=== PATIENT | male | born 1955 | race African-American/Black ===

== ENCOUNTER 2021-06-05 08:31 | Inpatient (IN) | payer MEDICAID ==
[~2021-06-05] VITALS: Ht 182.9 cm; Wt 79.1 kg
[2021-06-05] MEDS ORDERED: SODIUM CHLORIDE 0.9% 1000ML BAG (SEPSIS BOLUS) IV ONE (09:15)
[2021-06-05] MEDS ORDERED: PIPERACILLIN/TAZ 3.375G PREMIX 50 ML IV ONE (09:15)
[2021-06-05] MEDS ORDERED: VANCOMYCIN 1 G PREMIX 200 ML IV ONE (09:15)
[2021-06-05 09:50] LABS: CHLORIDE 97 mEq/L (98-107)
[2021-06-05 10:02] LABS: HEMATOCRIT. 39.9 % (42.0-52.0); HEMOGLOBIN. 13.2 g/dL (14.0-18.0); MEAN CORPUSCULAR HEMOGLOBIN 29.2 pg (28.0-32.0); MEAN CORPUSCULAR VOLUME 88.6 fL (80.0-94.0); MEAN PLATELET VOLUME 7.5 fl (7.4-10.4); PLATELET 185 x1000/uL (130-400); RED CELL DISTRIBUTION WIDTH 14.5 % (11.6-14.6)
[2021-06-05 10:46] LABS: PLATELET ESTIMATE NORMAL
[2021-06-05 11:30] LABS: CLARITY URINE CLEAR (CLEAR); COLOR URINE YELLOW (YELLOW); KETONES URINE NEGATIVE (NEGATIVE); LEUKOCYTE ESTERASE URINE NEGATIVE (NEGATIVE); NITRITE URINE NEGATIVE (NEGATIVE); OCCULT BLOOD URINE NEGATIVE (NEGATIVE); PH URINE 8.5 (4.5-8.0); PROTEIN URINE NEGATIVE (NEGATIVE); UROBILINOGEN URINE 0.2 E.U./dL (0.2-1.0)
[2021-06-05 12:16] LABS: CHLORIDE 100 mEq/L (98-107)
[2021-06-05] MEDS ORDERED: HALOPERIDOL LACTATE 5MG/ML VIAL IM PRN (15:15)
[2021-06-05 16:00] VITALS: BP 133/75
[2021-06-05] MEDS ORDERED: NA PHOS,M-B/NA PHOS,DI-BA ENEMA 118ML PR PRN (16:45)
[2021-06-05] MEDS ORDERED: ONDANSETRON HCL 4MG/2ML INJ IV PRN (16:45)
[2021-06-05] MEDS ORDERED: PIPERACILLIN/TAZ 3.375G PREMIX 50 ML IV SCH (16:45)
[2021-06-05] MEDS ORDERED: NITROGLYCERIN 0.4MG TABLET SL SL PRN (16:45)
[2021-06-05] MEDS ORDERED: DOCUSATE SODIUM 100MG CAPSULE PO PRN (16:45)
[2021-06-05] MEDS ORDERED: IPRATROPIUM/ALBUTEROL 0.5-3(2.5)MG/3ML NEB NEB PRN (16:45)
[2021-06-05] MEDS ORDERED: CLONIDINE 0.1MG TABLET PO PRN (16:45)
[2021-06-05] MEDS ORDERED: GUAIFENESIN 200MG/10ML SUGAR FREE UDC PO PRN (16:45)
[2021-06-05] MEDS ORDERED: KETOROLAC 30MG/ML VIAL IV PRN (16:45)
[2021-06-05] MEDS ORDERED: ACETAMINOPHEN 325MG TABLET PO PRN (16:45)
[2021-06-05] MEDS ORDERED: MAGNESIUM/ALUMINUM HYDROXIDE/SIMETHICONE 30ML UDC PO PRN (16:45)
[2021-06-05] MEDS: LACTULOSE 20G/30ML UDC PO SCH ×2 (17:00→22:34)
[2021-06-05] MEDS: ENOXAPARIN 40MG/0.4ML SYR SUBCUT SCH (17:00)
[2021-06-05] MEDS: PIPERACILLIN/TAZOBACTAM 3.375G in DEXT 5% WATER 50ML IV SCH (18:00)
[2021-06-05] MEDS: VANCOMYCIN 1500MG in DEXTROSE 5% WATER 250ML IV SCH (18:30)
[2021-06-05 18:42] VITALS: BP 106/52
[2021-06-05 20:00] VITALS: BP 128/78
[2021-06-05 20:55] LABS: T4 FREE 0.84 ng/dL (0.76-1.46)
[2021-06-05 21:22] LABS: VITAMIN B12 SERUM 518 pg/mL (211-911)
[2021-06-05 21:25] LABS: FOLIC ACID (FOLATE) SERUM > 20.00 ng/mL (>5.38)
[2021-06-05] MEDS: ASCORBIC ACID 500 MG TABLET PO SCH (22:34)
[2021-06-05] MEDS: FAMOTIDINE 20MG TABLET PO SCH (22:34)
[2021-06-05] MEDS: ZOLPIDEM TARTRATE 5MG TABLET PO PRN (22:45)
[2021-06-06] VITALS: BP 136/83
[2021-06-06 00:01] LABS: CREATINE KINASE 290 IU/L (39-308)
[2021-06-06 00:03] LABS: CREATINE KINASE MB FRACTION 1.3 ng/mL (0.5-3.6)
[2021-06-06] MEDS: PIPERACILLIN/TAZOBACTAM 3.375G in DEXT 5% WATER 50ML IV SCH ×4 (00:56→20:33)
[2021-06-06 04:00] VITALS: BP 139/82
[2021-06-06] MEDS: VANCOMYCIN 1500MG in DEXTROSE 5% WATER 250ML IV SCH ×2 (05:18→17:55)
[2021-06-06] MEDS: LACTULOSE 20G/30ML UDC PO SCH ×3 (05:18→20:33)
[2021-06-06 07:56] LABS: BASOPHILS % 0.5 % (0.0-2.0); HEMATOCRIT. 38.4 % (42.0-52.0); HEMOGLOBIN. 12.8 g/dL (14.0-18.0); LYMPHOCYTES % 8.2 % (20.0-50.0); MEAN CORPUSCULAR HEMOGLOBIN 29.5 pg (28.0-32.0); MEAN CORPUSCULAR VOLUME 88.1 fL (80.0-94.0); MEAN PLATELET VOLUME 8.2 fl (7.4-10.4); MONOCYTES % 8.1 % (2.0-8.0); NEUTROPHILS % 83.2 % (40.0-76.0); PLATELET 211 x1000/uL (130-400); RED BLOOD CELL COUNT 4.36 mill/uL (4.7-6.1); RED CELL DISTRIBUTION WIDTH 14.5 % (11.6-14.6)
[2021-06-06 08:00] VITALS: BP 130/81
[2021-06-06 08:01] LABS: CHLORIDE 108 mEq/L (98-107)
[2021-06-06 08:12] LABS: PHOSPHORUS 2.8 mg/dL (2.5-4.9)
[2021-06-06 08:18] LABS: CREATINE KINASE 192 IU/L (39-308); HDL CHOLESTEROL 79 mg/dL (40-59)
[2021-06-06 08:19] LABS: LDL CHOLESTEROL 95 mg/dL (5-100)
[2021-06-06] MEDS: ASCORBIC ACID 500 MG TABLET PO SCH ×2 (09:33→20:33)
[2021-06-06] MEDS: ZINC SULFATE 220 MG ( 50 ) CAPSULE PO SCH (09:33)
[2021-06-06] MEDS: ASPIRIN 325MG EC TABLET PO SCH (09:33)
[2021-06-06] MEDS: FAMOTIDINE 20MG TABLET PO SCH ×2 (09:33→20:33)
[2021-06-06 12:00] VITALS: BP 132/81
[2021-06-06 16:00] VITALS: BP 137/84
[2021-06-06] MEDS: ENOXAPARIN 40MG/0.4ML SYR SUBCUT SCH (17:55)
[2021-06-06 20:00] VITALS: BP 105/69
[2021-06-06] MEDS: ZOLPIDEM TARTRATE 5MG TABLET PO PRN (20:33)
[2021-06-07] VITALS: BP 138/66
[2021-06-07 04:00] VITALS: BP 122/69
[2021-06-07 05:48] LABS: CHLORIDE 108 mEq/L (98-107)
[2021-06-07 05:59] LABS: VANCOMYCIN TROUGH 15.5 ug/mL (5.0-10.0)
[2021-06-07] MEDS: LACTULOSE 20G/30ML UDC PO SCH ×3 (06:19→20:52)
[2021-06-07] MEDS: PIPERACILLIN/TAZOBACTAM 3.375G in DEXT 5% WATER 50ML IV SCH ×3 (06:20→20:52)
[2021-06-07] MEDS: VANCOMYCIN 1500MG in DEXTROSE 5% WATER 250ML IV SCH (06:20)
[2021-06-07 08:18] VITALS: BP 134/92
[2021-06-07] MEDS: ASCORBIC ACID 500 MG TABLET PO SCH ×2 (08:32→20:52)
[2021-06-07] MEDS: ASPIRIN 325MG EC TABLET PO SCH (08:32)
[2021-06-07] MEDS: FAMOTIDINE 20MG TABLET PO SCH ×2 (08:32→20:52)
[2021-06-07] MEDS: ZINC SULFATE 220 MG ( 50 ) CAPSULE PO SCH (08:32)
[2021-06-07 12:00] VITALS: BP 118/76
[2021-06-07 16:28] VITALS: BP 133/88
[2021-06-07] MEDS: VANCOMYCIN 1250MG in DEXTROSE 5% WATER 250ML IV SCH (16:55)
[2021-06-07] MEDS: ENOXAPARIN 40MG/0.4ML SYR SUBCUT SCH (16:56)
[2021-06-07 20:00] VITALS: BP 130/80
[2021-06-08] VITALS: BP 120/97
[2021-06-08] MEDS ORDERED: LORAZEPAM 2MG/ML CPJ IV PRN ×2 (03:15→08:45)
[2021-06-08 04:00] VITALS: BP 126/81
[2021-06-08] MEDS: PIPERACILLIN/TAZOBACTAM 3.375G in DEXT 5% WATER 50ML IV SCH (05:36)
[2021-06-08] MEDS: VANCOMYCIN 1250MG in DEXTROSE 5% WATER 250ML IV SCH (05:36)
[2021-06-08] MEDS: LACTULOSE 20G/30ML UDC PO SCH ×3 (05:36→20:44)
[2021-06-08 07:43] VITALS: BP 113/74
[2021-06-08] MEDS: ASPIRIN 325MG EC TABLET PO SCH (08:04)
[2021-06-08] MEDS: ASCORBIC ACID 500 MG TABLET PO SCH ×2 (08:04→20:44)
[2021-06-08] MEDS: ZINC SULFATE 220 MG ( 50 ) CAPSULE PO SCH (08:04)
[2021-06-08] MEDS: FAMOTIDINE 20MG TABLET PO SCH ×2 (08:04→20:44)
[2021-06-08] MEDS: LEVETIRACETAM 500MG TABLET PO SCH ×2 (08:55→20:43)
[2021-06-08] MEDS: LEVOFLOXACIN 250MG TABLET PO SCH (10:19)
[2021-06-08 12:00] VITALS: BP 106/71
[2021-06-08 16:28] VITALS: BP 114/62
[2021-06-08] MEDS: ENOXAPARIN 40MG/0.4ML SYR SUBCUT SCH (16:32)
[2021-06-08] MEDS: ACETAMINOPHEN 325MG TABLET PO PRN ×2 (16:32→20:44)
[2021-06-08 20:00] VITALS: BP 102/61
[2021-06-09] VITALS: BP 110/68
[2021-06-09 04:00] VITALS: BP 112/73
[2021-06-09] MEDS: LACTULOSE 20G/30ML UDC PO SCH (05:30)
[2021-06-09 07:50] VITALS: BP 109/67
[2021-06-09] MEDS: ASPIRIN 325MG EC TABLET PO SCH (08:12)
[2021-06-09] MEDS: ZINC SULFATE 220 MG ( 50 ) CAPSULE PO SCH (08:13)
[2021-06-09] MEDS: ASCORBIC ACID 500 MG TABLET PO SCH (08:13)
[2021-06-09] MEDS: FAMOTIDINE 20MG TABLET PO SCH (08:13)
[2021-06-09] MEDS: LEVETIRACETAM 500MG TABLET PO SCH (08:13)
[2021-06-09 10:24] VITALS: BP 109/67
[2021-06-09] MEDS ORDERED: LEVO750T46 MT (10:24)
[2021-06-09] MEDS: LEVOFLOXACIN 250MG TABLET PO SCH (11:26)
[2021-06-09 11:40] VITALS: BP 110/70
[2021-06-09] MEDS ORDERED: LACTULOSE 20G/30ML UDC PO PRN (13:30)
== END 2021-06-09 15:45 | DRG 720 ==
LOC: ER 08:31 → EDBEDREQSVC 10:10 → EDBEDREQTM 10:10 → 8WST 11:25 → EDBEDREQ 11:39 → EDBEDREQTM 11:39 → ENRESERV 13:45 → CANRESERV 13:45 → ENRESERV 15:10
PROVIDERS: ADMIT Internal Medicine; ATTEND Internal Medicine
DX: A41.9 Sepsis, unspecified organism (principal); G92.8 Other toxic encephalopathy; E44.1 Mild protein-calorie malnutrition; D63.8 Anemia in other chronic diseases classified elsewhere; E87.1 Hypo-osmolality and hyponatremia; J18.9 Pneumonia, unspecified organism; E87.5 Hyperkalemia; G40.909 Epilepsy, unspecified, not intractable, without status epilepticus; K59.00 Constipation, unspecified; Y95 Nosocomial condition; R65.20 Severe sepsis without septic shock; Z68.23 Body mass index [BMI] 23.0-23.9, adult; Z86.19 Personal history of other infectious and parasitic diseases; Z88.1 Allergy status to other antibiotic agents
CPT/HCPCS: 36415; 71045; 74176; 80048; 80053; 80061; 80202; 81003; 82550; 82553; 82607; 82746; 82962; 83036; 83540; 83550; 83605; 83735; 84100; 84145; 84439; 84443; 84484; 85025; 87426; 93005; 93306; 93970; 93971; 99291; C1893; J1630; J1650; J2543; J3370; J7030; J7040; J7060; A4315